=== PATIENT | female | born 1990 | race Caucasian/White ===

== ENCOUNTER → 2016-10-10 | Outpatient (CLI) | payer BC, OTHER ==
--- NOTE | 2016-10-10 08:16 | REP ---
Clinical: Medullary nephrocalcinosis. Technique: Real time lainez scale and color Doppler evaluation of the kidneys using curved array transducer. Findings: The bilateral kidneys are normal in reniform shape without hydronephrosis and demonstrate increased medullary echogenicity consistent with nephrocalcinosis and medullary sponge kidney. Right kidney measures 10.9 x 5.1 x 5.3 cm and includes 12 mm mid pole and 9 mm lower pole simple cysts. Left kidney measures 11.4 x 5.3 x 4.8 cm and includes 18 mm upper pole and 12 mm lower pole simple cysts. The bladder is under distended but grossly normal. Early intrauterine identified measuring approximately 10 weeks 3 days gestational age. Impression: Evidence for medullary sponge kidney/nephrocalcinosis with small bilateral simple cysts. Signed by Andre Jaimes MD 10/10/2016 08:07 A
== END | disposition home or self-care (01) ==
LOC: M RAD 07:13
PROVIDERS: ATTEND Internal Medicine Nephrology
DX: Q61.5 Medullary cystic kidney (principal); N20.0 Calculus of kidney

== ENCOUNTER → 2016-11-16 | Outpatient (REF) | payer BC, OTHER | LOC: M LAB REF 16:52 | PROVIDERS: ATTEND Internal Medicine Nephrology | DX: E55.9 Vitamin D deficiency, unspecified (principal) ==

== ENCOUNTER → 2016-12-03 | Outpatient (CLI) | payer BC, OTHER ==
--- NOTE | 2016-12-04 04:29 | REP ---
Clinical: Anatomical evaluation. Comparison: None . Findings: Examination demonstrates a single live intrauterine in breech presentation. motion is identified by technologist. Placenta is noted anteriorly and grade zero without evidence for placenta previa or abruption. Amniotic fluid volume is normal. Cervix measures 4.1 cm in length and appears closed. No evidence for nuchal cord. Gestational age by LMP 18 weeks 1 day with ANDRE 05/05/2017 . Gestational age by current measurements 18 weeks 0 days with ANDRE 05/06/2017 . FHR equals 145 beats per minute. BPD 4.0 cm 18 weeks 0 days HC 14.6 cm 17 weeks 5 days AC 12.9 cm 18 weeks 3 days FL 2.7 cm 18 weeks 1 day HL 2.5 cm 17 weeks 6 days HC/AC ratio 1.13 Estimated weight 232 grams ( 53rd percentile). Anatomical assessment demonstrates normal structures including cranium, choroid plexus, cavum, cerebellum/posterior fossa, facial features, lungs, four-chamber heart/ventricular outflow tracts, diaphragm, stomach, cord insertion/three-vessel cord, kidneys/bladder, spine, and extremities. Impression: Single live intrauterine in breech presentation demonstrating appropriate interval growth. Anatomical assessment is complete and normal. Signed by Andre Jaimes MD 12/04/2016 04:20 A
== END ==
LOC: M RAD 08:27
PROVIDERS: ATTEND Obstetrics & Gynecology
DX: Z36 Encounter for antenatal screening of mother (principal); Z3A.19 19 weeks gestation of pregnancy; O32.1XX0 Maternal care for breech presentation, not applicable or unspecified

== ENCOUNTER → 2017-01-28 | Outpatient (CLI) | payer BC, OTHER ==
[2017-01-28 10:41] LABS: BASO % 0.3 % (0.0-1.0); EOS % 0.6 % (0.0-3.0); LARGE UNSTAINED CELL # 0.1 K/mm3 (0.0-0.4); LARGE UNSTAINED CELL % 1.4 % (0.0-4.0); LYMPH % 21.6 % (24.0-44.0); MEAN CORPUSCULAR HEMOGLOBIN 29.6 pg (27.0-33.0); MEAN CORPUSCULAR HGB CONC 33.6 g/dl (32.0-36.5); MONO # 0.4 K/mm3 (0.0-0.8); MONO % 4.8 % (0.0-5.0); NEUTROPHILS # 6.1 K/mm3 (1.8-7.7); NEUTROPHILS % 71.3 % (36.0-66.0); PLATELET COUNT, AUTOMATED 243 k/mm3 (150-450); RED CELL DISTRIBUTION WIDTH 12.9 % (11.5-14.5); WHITE BLOOD COUNT 8.5 K/mm3 (4.0-10.0)
== END ==
LOC: M LAB 08:35
PROVIDERS: ATTEND Obstetrics & Gynecology
DX: Z36 Encounter for antenatal screening of mother (principal); Z3A.00 Weeks of gestation of pregnancy not specified

== ENCOUNTER → 2017-01-30 | Outpatient (CLI) | payer BC, OTHER ==
--- NOTE | 2017-01-31 04:40 | REP ---
Clinical: Growth discrepancy. Comparison: 12/03/2016 . Findings: Examination demonstrates a single live intrauterine in transverse (head to maternal right side) presentation. motion is identified by technologist. Placenta is noted anteriorly and grade one without evidence for placenta previa or abruption. Amniotic fluid volume is normal. Cervix measures 4.0 cm in length and appears closed. No evidence for nuchal cord. Gestational age by LMP 26 weeks 3-day with ANDRE 05/05/2017 . Gestational age by current measurements 26 weeks 3 days with ANDRE 05/05/2017 . FHR equals 180 beats per minute. BPD 6.5 cm 26 weeks 2 days HC 25.1 cm 27 weeks 1 day AC 22.3 cm 26 weeks 5 days FL 4.9 cm 26 weeks 3 days HL 4.4 cm 26 weeks 3 days HC/AC ratio 1.12 Estimated weight 961 grams ( 48th percentile). Impression: Single live intrauterine demonstrating appropriate interval growth. No gross abnormalities are identified. Signed by Andre Jaimes MD 01/31/2017 04:31 A
== END ==
LOC: M RAD 08:36
PROVIDERS: ATTEND Obstetrics & Gynecology
DX: Z36 Encounter for antenatal screening of mother (principal)

== ENCOUNTER → 2017-04-04 | Outpatient (CLI) | payer BC, OTHER ==
--- NOTE | 2017-04-04 10:05 | REP ---
OBSTETRIC SONOGRAPHY: HISTORY: Supervision of growth study. FINDINGS: Scanning through the gravid uterus demonstrates a viable single intrauterine gestation in a cephalic lie. motion is observed and heart rate is recorded at 127 beats per minute. An anterior grade 2 placenta is seen without evidence of previa or abruption. Amniotic fluid is subjectively normal. No extrauterine abnormality is observed. There has been appropriate interval growth. No anomaly is seen. nose and lips are seen but profile is not adequately visualized today. The following additional anatomic structures are identified today and felt to be unremarkable: cranium, cavum, lungs, four-chamber heart with left and right ventricular outflow tract views, diaphragm, left-sided stomach, kidneys and bladder, spine. Biometry Chart: BPD 8.8 cm = 35 weeks 4 days HC 30.6 cm = 34 weeks 0 days AC 32.6 cm = 36 weeks 3 days FL 6.9 cm = 35 weeks 3 days HL 5.9 cm = 34 weeks 0 days HC/AC ratio normal 0.94. Cephalic index normal 0.83. Estimated weight 2782 grams, 6 pounds 2 ounces, 54th percentile for 35 weeks 4 days. TODD 14.5 cm. IMPRESSION: Viable single intrauterine gestation at 35 weeks 1 day by today's composite sonographic criteria. Expected gestational age estimate based on prior sonography is 35 weeks 3 days. ANDRE by prior sonography May 06, 2017. Signed by Sage Bishop MD 04/04/2017 10:20 A
== END ==
LOC: M RAD 09:06
DX: Z36 Encounter for antenatal screening of mother (principal); Z3A.35 35 weeks gestation of pregnancy

== ENCOUNTER → 2017-06-04 | Outpatient (CLI) | payer BC, OTHER ==
--- NOTE | 2017-06-04 15:19 | REP ---
BILIARY SCAN WITH GALLBLADDER EJECTION FRACTION: 06/04/2017. COMPARISON: Abdominal ultrasound 07/06/2016. CLINICAL HISTORY: Right upper quadrant pain for several years with multiple other associated symptoms including reflux. TECHNIQUE: The patient received 6.5 mCi technetium 99m mebrofenin via an IV. Sequential 5-minute images for 1 hour were obtained in anterior projection. Thereafter, the patient consumed 8 ounces of Ensure Enlive as prior to another set of images for 60 minutes at 2-minute intervals beginning 65 minutes post tracer injection. FINDINGS: Tracer distribution is homogeneous throughout the liver except for the effect of the breast shadow over the dome of the right lobe of the liver. Activity first appears in the gallbladder fossa at 10 minutes and into the duodenum by 20 minutes. There is also activity in the small bowel by 20 minutes and progressive washout of activity from the liver, increasing activity in the gallbladder fossa and peristalsis into small bowel with progression. Good washout of activity from the liver noted visually. The gallbladder ejection fraction is calculated using region of interest and measuring over an hour with ejection fraction determined by semi-automated method. The ejection fraction is calculated at 65% for 1 hour. With this technique, greater than 35% is considered normal. IMPRESSION: 1. Normal biliary scan with prompt homogeneous tracer distribution, good washout of activity, prompt activity accumulating in the gallbladder and good biliary to bowel transit time. Normal ejection fraction. Negative scan. Signed by Adelfo Hawthorne MD 06/04/2017 04:15 P
== END ==
LOC: M RAD 10:00
DX: R10.11 Right upper quadrant pain (principal)
CPT/HCPCS: 78227; A9537; J2805

== ENCOUNTER 2018-09-05 08:21 | Emergency (ER) | payer OTHER, BC | END 2018-09-05 09:36 | disposition home or self-care (01) | LOC: M ED 08:21 | DX: S60.222A Contusion of left hand, initial encounter (principal); W23.0XXA Caught, crushed, jammed, or pinched between moving objects, initial encounter; Y92.89 Other specified places as the place of occurrence of the external cause; Y99.0 Civilian activity done for income or pay; Z88.1 Allergy status to other antibiotic agents; Z88.2 Allergy status to sulfonamides | CPT/HCPCS: 73130 ==

== ENCOUNTER → 2019-05-20 | Outpatient (REF) | payer OTHER ==
[~2019-05-20] MED LIST: AMIL5TAB4; CHLO125TA; KLOR CON; [UNRECOGNIZED DRUG - OTHER]
== END ==
LOC: M LAB LCGH 11:33
DX: Z12.4 Encounter for screening for malignant neoplasm of cervix (principal); R87.610 Atypical squamous cells of undetermined significance on cytologic smear of cervix (ASC-US)

== ENCOUNTER → 2020-03-04 | Outpatient (REF) | payer OTHER | LOC: M LAB REF 18:16 | PROVIDERS: ATTEND Physician Assistant | DX: C44.509 Unspecified malignant neoplasm of skin of other part of trunk (principal) ==

== ENCOUNTER → 2020-10-13 | Outpatient (CLI) | payer BC, OTHER ==
[2020-10-13 08:38] LABS: BASO % 0.6 % (0.0-1.0); EOS # 0.1 10^3/uL (0.0-0.5); EOS % 1.9 % (0.0-3.0); HEMATOCRIT 44.5 % (36.0-47.0); HEMOGLOBIN 14.8 g/dl (12.0-15.5); LYMPH # 2.6 10^3/uL (1.5-5.0); LYMPH % 37.7 % (24.0-44.0); MEAN CORPUSCULAR HGB CONC 33.3 g/dl (32.0-36.5); MEAN CORPUSCULAR VOLUME 87.1 fl (80.0-96.0); MONO # 0.4 10^3/uL (0.0-0.8); MONO % 6.5 % (0.0-5.0); NEUTROPHILS # 3.6 10^3/uL (1.5-8.5); NEUTROPHILS % 53.2 % (36.0-66.0); PLATELET COUNT, AUTOMATED 340 10^3/uL (150-450); RED BLOOD COUNT 5.11 10^6/uL (4.00-5.40); WHITE BLOOD COUNT 6.8 10^3/uL (4.0-10.0)
[2020-10-13 08:59] LABS: ERYTHROCYTE SEDIMENTATION RATE 2 mm/hr (0-20)
[2020-10-13 09:14] LABS: ALBUMIN 3.9 GM/DL (3.2-5.2); ALT/SGPT 17 U/L (12-78); BILIRUBIN,TOTAL 0.3 MG/DL (0.2-1.0); BLOOD UREA NITROGEN 13 MG/DL (7-18); CALCIUM LEVEL 9.7 MG/DL (8.5-10.1); CARBON DIOXIDE LEVEL 29 MEQ/L (21-32); CHLORIDE LEVEL 102 MEQ/L (98-107); COMPLEMENT C3 107 MG/DL (90-180); COMPLEMENT C4 26 MG/DL (10-40); CREATININE FOR GFR 0.87 MG/DL (0.55-1.30); GLOMERULAR FILTRATION RATE > 60.0 (>60); GLUCOSE, FASTING 94 MG/DL (70-100); SODIUM LEVEL 139 MEQ/L (136-145); TOTAL PROTEIN 7.4 GM/DL (6.4-8.2)
[2020-10-17 13:07] LABS: ANTI DOUBLE STRAND-DNA AB 26 IU/mL (0-9); ANTI DS-DNA AB Negative (Negative); ANTINUCLEAR ANTIBODIES DIRECT Positive (Negative); CARDIOLIPIN IGA ANTIBODY <9 APL U/mL (0-11); CARDIOLIPIN IGG ANTIBODY <9 GPL U/mL (0-14); CARDIOLIPIN IGM ANTIBODY <9 MPL U/mL (0-12); RNP ANTIBODIES <0.2 AI (0.0-0.9); SJOGREN'S ANTI SS-A <0.2 AI (0.0-0.9); SJOGREN'S ANTI SS-B <0.2 AI (0.0-0.9); SMITH ANTIBODIES <0.2 AI (0.0-0.9)
== END ==
LOC: M LAB 08:05
PROVIDERS: ATTEND Family Medicine
DX: M32.9 Systemic lupus erythematosus, unspecified (principal)

== ENCOUNTER → 2021-01-05 | Outpatient (CLI) | payer BC, OTHER ==
--- NOTE | 2021-01-06 07:02 | REP ---
INDICATION: CYSTIC KIDNEY COMPARISON: 10/10/2016 TECHNIQUE: Real time lainez scale ultrasound examination using curved array transducer. Color Doppler evaluation. FINDINGS: The kidneys are normal in reniform shape and again demonstrate findings consistent with medullary sponge kidney and few bilateral peripelvic cysts essentially unchanged from prior examination. No hydronephrosis, nephrolithiasis or obvious mass lesion appreciated. Right kidney measures 11.6 x 4.8 x 3.7 cm and includes 12 mm and 16 mm peripelvic cysts and 14 mm lower pole cysts. RI equals 0.60 Left kidney measures 9.7 x 4.7 x 4.2 cm and includes 11 mm upper pole cyst, 20 mm midpole cyst, 12 mm and 8 mm lower pole cysts. RI equals 0.58 IMPRESSION: Medullary sponge kidney and few bilateral cysts similar to prior examination. <Electronically signed by Andre Jaimes > 01/06/21 [id number]
== END ==
LOC: M RAD 08:20
PROVIDERS: ATTEND Internal Medicine Nephrology
DX: Q61.5 Medullary cystic kidney (principal); N25.89 Other disorders resulting from impaired renal tubular function; N23 Unspecified renal colic

== ENCOUNTER → 2021-06-29 | Outpatient (REF) | payer BC, OTHER | LOC: M LAB REF 12:54 | PROVIDERS: ATTEND Internal Medicine Nephrology | DX: E87.6 Hypokalemia (principal) ==

== ENCOUNTER → 2021-09-14 | Outpatient (REF) | LOC: M EMP 08:01 | PROVIDERS: ATTEND Family Medicine | DX: Z11.52 Encounter for screening for COVID-19 (principal) ==

== ENCOUNTER → 2021-09-28 | Outpatient (CLI) | payer BC, OTHER ==
[2021-09-28 08:56] LABS: BASO # 0.1 10^3/uL (0.0-0.2); BASO % 0.8 % (0.0-1.0); EOS # 0.1 10^3/uL (0.0-0.5); EOS % 1.9 % (0.0-3.0); LYMPH # 2.2 10^3/uL (1.5-5.0); LYMPH % 30.3 % (24.0-44.0); MEAN CORPUSCULAR HEMOGLOBIN 28.5 pg (27.0-33.0); MEAN CORPUSCULAR HGB CONC 33.3 g/dl (32.0-36.5); MEAN CORPUSCULAR VOLUME 85.5 fl (80.0-96.0); MONO # 0.6 10^3/uL (0.0-0.8); NEUTROPHILS # 4.3 10^3/uL (1.5-8.5); NEUTROPHILS % 58.6 % (36.0-66.0); PLATELET COUNT, AUTOMATED 334 10^3/uL (150-450); RED BLOOD COUNT 4.91 10^6/uL (4.00-5.40); WHITE BLOOD COUNT 7.4 10^3/uL (4.0-10.0)
[2021-09-28 08:59] LABS: APPEARANCE, URINE HAZY (CLEAR); BACTERIA, URINE AUTO NEGATIVE (NEGATIVE); BILIRUBIN, URINE AUTO NEGATIVE (NEGATIVE); BLOOD, URINE BLOOD NEGATIVE (NEGATIVE); COLOR, URINE YELLOW (YELLOW); GLUCOSE, URINE (UA) AUTO NEGATIVE (NEGATIVE); KETONE, URINE AUTO NEGATIVE (NEGATIVE); LEUKOCYTE ESTERASE, URINE AUTO NEGATIVE (NEGATIVE); MUCUS, URINE SMALL (NEGATIVE); NITRITE, URINE AUTO NEGATIVE (NEGATIVE); PROTEIN, URINE AUTO NEGATIVE (NEGATIVE); RBC, URINE AUTO 7 /HPF (0-3); SPECIFIC GRAVITY URINE AUTO 1.015 (1.002-1.035); SQUAMOUS EPITHELIAL CELL UR AU 5 /HPF (0-6); UROBILINOGEN, URINE AUTO 0.2 mg/dL (0.0-2.0); WBC, URINE AUTO 1 /HPF (0-3)
[2021-09-28 09:16] LABS: TOTAL PROTEIN,RANDOM URINE 17.7 MG/DL (0.0-12.0)
[2021-09-28 09:23] LABS: ALBUMIN 3.9 GM/DL (3.2-5.2); ALT/SGPT 16 U/L (12-78); BILIRUBIN,TOTAL 0.2 MG/DL (0.2-1.0); BLOOD UREA NITROGEN 10 MG/DL (7-18); CALCIUM LEVEL 9.5 MG/DL (8.5-10.1); CARBON DIOXIDE LEVEL 28 MEQ/L (21-32); CHLORIDE LEVEL 107 MEQ/L (98-107); COMPLEMENT C3 121 MG/DL (90-180); COMPLEMENT C4 30 MG/DL (10-40); CREATININE FOR GFR 0.89 MG/DL (0.55-1.30); GLOMERULAR FILTRATION RATE > 60.0 (>60); GLUCOSE, FASTING 86 MG/DL (70-100); POTASSIUM SERUM 3.8 MEQ/L (3.5-5.1); SODIUM LEVEL 141 MEQ/L (136-145); TOTAL PROTEIN 7.6 GM/DL (6.4-8.2)
[2021-09-28 09:30] LABS: ERYTHROCYTE SEDIMENTATION RATE 4 mm/hr (0-20)
== END ==
LOC: M LAB 07:46
PROVIDERS: ATTEND Family Medicine
DX: M32.9 Systemic lupus erythematosus, unspecified (principal)

== ENCOUNTER → 2022-01-04 | Outpatient (REF) | LOC: M LABSMTC 09:50 | PROVIDERS: ATTEND Family Medicine | DX: Z11.52 Encounter for screening for COVID-19 (principal) ==

== ENCOUNTER 2022-11-15 09:58 | Outpatient (RCR) | payer OTHER, SELFPAY | END 2022-11-20 | LOC: M PT 09:58 | PROVIDERS: ATTEND Family Medicine | DX: R68.84 Jaw pain (principal) ==

== ENCOUNTER → 2022-12-19 | Outpatient (CLI) | payer BC ==
[2022-12-19 13:00] LABS: HEMATOCRIT 42.4 % (36.0-47.0); HEMOGLOBIN 13.7 g/dl (12.0-15.5); MEAN CORPUSCULAR HGB CONC 32.3 g/dl (32.0-36.5); MEAN CORPUSCULAR VOLUME 86.7 fl (80.0-96.0); PLATELET COUNT, AUTOMATED 350 10^3/uL (150-450); RED BLOOD COUNT 4.89 10^6/uL (4.00-5.40); WHITE BLOOD COUNT 9.6 10^3/uL (4.0-10.0)
[2022-12-19 13:02] LABS: APPEARANCE, URINE CLEAR (CLEAR); BACTERIA, URINE AUTO 1+ (NEGATIVE); BILIRUBIN, URINE AUTO NEGATIVE (NEGATIVE); BLOOD, URINE BLOOD 1+ (NEGATIVE); COLOR, URINE YELLOW (YELLOW); GLUCOSE, URINE (UA) AUTO 1+ mg/dL (NEGATIVE); KETONE, URINE AUTO NEGATIVE (NEGATIVE); LEUKOCYTE ESTERASE, URINE AUTO NEGATIVE (NEGATIVE); MUCUS, URINE SMALL (NEGATIVE); NITRITE, URINE AUTO NEGATIVE (NEGATIVE); PROTEIN, URINE AUTO NEGATIVE (NEGATIVE); RBC, URINE AUTO 5 /HPF (0-3); SPECIFIC GRAVITY URINE AUTO 1.013 (1.002-1.035); SQUAMOUS EPITHELIAL CELL UR AU 3 /HPF (0-6); UROBILINOGEN, URINE AUTO 0.2 mg/dL (0.0-2.0); WBC, URINE AUTO 1 /HPF (0-3)
[2022-12-19 13:23] LABS: ALKALINE PHOSPHATASE 71 U/L (46-116); ALT/SGPT 17 U/L (7.0-40); AST/SGOT 18 U/L (<34); BILIRUBIN,TOTAL 0.3 MG/DL (0.3-1.2); BLOOD UREA NITROGEN 9 MG/DL (9-23); CALCIUM LEVEL 9.4 MG/DL (8.5-10.1); CARBON DIOXIDE LEVEL 28 MMOL/L (20-31); CHLORIDE LEVEL 104 MMOL/L (98-107); CREATININE FOR GFR 0.72 MG/DL (0.55-1.30); GLOMERULAR FILTRATION RATE > 60.0 (>60); GLUCOSE, FASTING 49 MG/DL (60-100); SODIUM LEVEL 139 MMOL/L (136-145); TOTAL PROTEIN 7.2 G/DL (5.7-8.2)
[2022-12-19 13:24] LABS: C REACTIVE PROTEIN QUANTITATIV < 0.40 MG/DL (<1.0)
[2022-12-19 13:25] LABS: COMPLEMENT C3 125.5 MG/DL (84.0-160.0); COMPLEMENT C4 31.2 MG/DL (12-36)
[2022-12-19 13:32] LABS: CREATININE,RANDOM URINE 79.5 MG/DL
[2022-12-19 13:33] LABS: TOTAL PROTEIN,RANDOM URINE < 6.0 MG/DL (0.0-14.0)
[2022-12-19 13:39] LABS: ERYTHROCYTE SEDIMENTATION RATE 5 mm/hr (0-20)
[2022-12-21 16:09] LABS: ANTI DS-DNA AB Negative (Negative)
== END ==
LOC: M LAB 11:40
PROVIDERS: ATTEND Family Medicine
DX: M32.9 Systemic lupus erythematosus, unspecified (principal)

== ENCOUNTER → 2023-03-19 | Outpatient (CLI) | payer BC ==
[2023-03-21 15:08] LABS: ANCA-ATYPICAL <1:20 titer (Neg:<1:20); ANTI-SACCHAROMYCES CEREV. IgA <20.0 Units (0.0-24.9); ANTI-SACCHAROMYCES CEREV. IgG <20.0 Units (0.0-24.9); CYTOPLASMIC NEUTROP AB ANCA-C <1:20 titer (Neg:<1:20); PERINUCLEAR AB ANCA-P <1:20 titer (Neg:<1:20)
== END ==
LOC: M LAB 08:41
PROVIDERS: ATTEND Internal Medicine Gastroenterology
DX: K21.9 Gastro-esophageal reflux disease without esophagitis (principal)

== ENCOUNTER → 2023-05-17 | Outpatient (REF) | payer BC, OTHER | LOC: M SFHCDERM 17:14 | PROVIDERS: ATTEND Physician Assistant | DX: L57.0 Actinic keratosis (principal) ==

== ENCOUNTER → 2023-07-19 | Outpatient (CLI) | payer BC | LOC: M RAD 15:46 | PROVIDERS: ATTEND Nurse Practitioner Family | DX: N20.0 Calculus of kidney (principal); N28.1 Cyst of kidney, acquired ==

== ENCOUNTER → 2024-02-06 | Outpatient (REF) | LOC: M EMP 13:29 | PROVIDERS: ATTEND Family Medicine | DX: Z11.52 Encounter for screening for COVID-19 (principal) ==